=== PATIENT | female | born 1950 | race Caucasian/White ===

== ENCOUNTER 2022-07-03 05:54 | Observation (INO) | payer MEDICARE ==
[~2022-07-03] VITALS: Ht 157.5 cm; Wt 68.0 kg
[~2022-07-03 05:54] MED LIST: AMLODIPINE BESYL5 MG PO; COD LIVER OIL1 EAC1 PO; DIOVAN160 MG PO; ELDERBERRY PO; POTASSIUM CHLO10 ME1 PO
[2022-07-03] MEDS ORDERED: CELECOXIB 200 MG CAP ONE (06:49)
[2022-07-03] MEDS ORDERED: GABAPENTIN 300 MG CAP ONE (06:49)
[2022-07-03] MEDS ORDERED: DEXAMETHASONE SOD PHOS 10 MG/1 ML VIAL ONE (06:49)
[2022-07-03] MEDS ORDERED: SODIUM CHLORIDE 0.9% 500ML 500 ML ONE (06:52)
[2022-07-03] MEDS ORDERED: Vancomycin IV 1,000 MG ONE (06:52)
[2022-07-03] MEDS ORDERED: TRANEXAMIC ACID 20 ML ONE (06:53)
[2022-07-03] MEDS ORDERED: ROPIVACAINE 246.25 MG, EPINEPHRINE HCL 1:1000 1ML 0.5 MG, CLONIDINE HCL 0.08 MG, KETORO... INJ ONE ×5 (08:00)
[2022-07-03] MEDS ORDERED: ZOLPIDEM TARTRATE 5 MG TAB PO PRN (09:30)
[2022-07-03] MEDS ORDERED: DIPHENHYDRAMINE HCL INJ 50 MG/ML VIAL IV PRN (09:30)
[2022-07-03] MEDS ORDERED: HYDROCODONE/APAP 5MG-325MG TAB PO PRN (09:30)
[2022-07-03] MEDS ORDERED: HYDROCODONE/APAP 7.5MG-325MG 1 EA TAB PO PRN (09:30)
[2022-07-03] MEDS ORDERED: DOCUSATE SODIUM 100 MG CAP PO PRN (09:30)
[2022-07-03] MEDS ORDERED: ONDANSETRON HCL INJ 2MG/ML 2ML 2 MG/ML VIAL IV PRN (09:30)
[2022-07-03] MEDS ORDERED: METOPROLOL TARTRATE INJ 1 MG/ML VIAL ONE (10:13)
[2022-07-03 10:38] LABS: BASOPHILS % 0.4 % (0.0-1.0); HEMATOCRIT 41.5 % (34.2-44.1); HEMOGLOBIN 13.3 g/dL (12.0-16.0); LYMPHOCYTES # (AUTO) 2.2 (1.0-3.2); MEAN CORPUSCULAR HEMOGLOBIN 32.2 pg (28-32); MEAN CORPUSCULAR VOLUME 100.5 fL (81-99); MONOCYTES # (AUTO) 0.2 (0.2-0.8); MONOCYTES % 1.7 % (4.4-11.3); NEUTROPHILS # (AUTO) 8.5 (2.1-6.9); NEUTROPHILS % 77.4 % (38.7-80.0); PLATELET COUNT 222 x10e3/uL (140-360); RED BLOOD COUNT 4.13 x10e6/uL (3.6-5.1); RED CELL DISTRIBUTION WIDTH 12.3 % (11.7-14.4)
[2022-07-03 11:05] LABS: ANION GAP 16.7 mmol/L (8-16); CALCIUM 8.8 mg/dL (8.4-10.2); CREATININE, SERUM 0.77 mg/dL (0.57-1.11); POTASSIUM 3.7 mmol/L (3.5-5.1)
[2022-07-03] MEDS ORDERED: FENTANYL CITRATE/PF 100MCG/2 ML INJ ONE (13:37)
[2022-07-03 14:50] VITALS: BP 104/71
[2022-07-03 15:05] VITALS: BP 104/71
[2022-07-03 15:12] VITALS: BP 104/71
[2022-07-03] MEDS: SODIUM CHLORIDE 0.9% 1000ML 1,000 ML IV SCH (15:41)
[2022-07-03 16:08] VITALS: BP 104/71
[2022-07-03] MEDS: ASPIRIN 325 MG TAB PO SCH (16:35)
[2022-07-03] MEDS: CELECOXIB 100 MG CAP PO SCH (16:35)
[2022-07-03] MEDS ORDERED: ACETAMINOPHEN 1000 MG/100 ML IV PRN (18:00)
[2022-07-03 20:00] VITALS: BP 108/68
[2022-07-04] VITALS: BP 118/59
[2022-07-04 04:00] VITALS: BP 124/64
[2022-07-04 05:01] LABS: HEMATOCRIT 34.2 % (34.2-44.1); HEMOGLOBIN 11.2 g/dL (12.0-16.0)
[2022-07-04] MEDS: SODIUM CHLORIDE 0.9% 1000ML 1,000 ML IV SCH ×2 (06:29→06:31)
[2022-07-04 08:04] VITALS: BP 110/69
[2022-07-04] MEDS ORDERED: VALSARTAN 160 MG TAB PO SCH (09:00)
[2022-07-04] MEDS ORDERED: AMLODIPINE BESYLATE 5 MG TAB PO SCH (09:00)
[2022-07-04] MEDS ORDERED: POTASSIUM CHLORIDE 10MEQ EA PO SCH (09:00)
[2022-07-04 09:03] VITALS: BP 110/69
[2022-07-04] MEDS: ASPIRIN 325 MG TAB PO SCH (09:55)
[2022-07-04] MEDS: CELECOXIB 100 MG CAP PO SCH (09:56)
[2022-07-04] MEDS ORDERED: ONDANSETRON HCL 4 MG ORAL DISINTEGRATING TAB PO PRN (11:15)
[2022-07-04 13:53] VITALS: BP 119/83
== END 2022-07-04 14:30 | disposition home or self-care (01) ==
LOC: OR 05:54 → PACU V 09:43 → MED/SURG 14:45
PROVIDERS: ADMIT Specialist; ATTEND Specialist
DX: M17.0 Bilateral primary osteoarthritis of knee (principal); Z96.652 Presence of left artificial knee joint; E78.00 Pure hypercholesterolemia, unspecified; I10 Essential (primary) hypertension; I97.191 Other postprocedural cardiac functional disturbances following other surgery; Z20.822 Contact with and (suspected) exposure to COVID-19
CPT/HCPCS: 0223U; 27447; 36415 ×2; 73560; 80048; 85014; 85018; 85025; 86850; 86900; 86920; 93005; 94799 ×2; 97110 ×3; 97116 ×2; 97161; 97530 ×3; 99251; C1713; G0378 ×2; J0171; J0690 ×2; J1100; J1885; J2795; J3010; J3370; J7030; J7040

== ENCOUNTER 2023-08-13 05:23 | Observation (INO) | payer MEDICARE ==
[~2023-08-13] VITALS: Ht 157.5 cm; Wt 66.2 kg
[~2023-08-13 05:23] MED LIST changes: +ATORVASTATIN CA20 MG PO; +CALCIUM CHEW PO; +COQ-10100 MG PO; +ELDERBERRY350 MG PO; +FISH OIL 1,0001 EAC7 PO; +LEXAPRO5 MG PO; +VALSARTAN-HCTZ1 EAC1 PO; +VITAMIN B-121000 MCG PO
[2023-08-13] MEDS ORDERED: CELECOXIB 200 MG CAP ONE (05:40)
[2023-08-13] MEDS ORDERED: GABAPENTIN 300 MG CAP ONE (05:41)
[2023-08-13] MEDS ORDERED: DEXAMETHASONE SOD PHOS 10 MG/1 ML VIAL ONE (05:41)
[2023-08-13] MEDS ORDERED: CEFAZOLIN SODIUM 2 GM ONE (05:41)
[2023-08-13] MEDS ORDERED: LACTATED RINGER'S 1,000 ML ONE ×2 (05:41→08:38)
[2023-08-13] MEDS ORDERED: TRANEXAMIC ACID 20 ML ONE (06:32)
[2023-08-13] MEDS ORDERED: Vancomycin IV 1,000 MG ONE (06:32)
[2023-08-13] MEDS ORDERED: SODIUM CHLORIDE 0.9% 500ML 500 ML ONE (06:32)
[2023-08-13] MEDS ORDERED: ROPIVACAINE 246.25 MG, EPINEPHRINE HCL 1:1000 1ML 0.5 MG, CLONIDINE HCL 0.08 MG, KETORO... INJ ONE ×5 (08:00)
[2023-08-13] MEDS ORDERED: ONDANSETRON HCL INJ 2MG/ML 2ML 2 MG/ML VIAL IV PRN (08:15)
[2023-08-13] MEDS ORDERED: DIPHENHYDRAMINE HCL INJ 50 MG/ML VIAL IV PRN (08:15)
[2023-08-13] MEDS ORDERED: HYDROCODONE/APAP 7.5MG-325MG 1 EA TAB PO PRN (08:15)
[2023-08-13] MEDS ORDERED: HYDROCODONE/APAP 5MG-325MG TAB PO PRN (08:15)
[2023-08-13] MEDS ORDERED: DOCUSATE SODIUM 100 MG CAP PO PRN (08:15)
[2023-08-13] MEDS ORDERED: METOPROLOL TARTRATE INJ 1 MG/ML VIAL ONE (08:29)
[2023-08-13] MEDS ORDERED: SEVOFLURANE INHAL SOLN 250 ML PEN BTL ONE (13:14)
[2023-08-13] MEDS ORDERED: ONDANSETRON HCL INJ 2MG/ML 2ML 2 MG/ML VIAL ONE (13:14)
[2023-08-13] MEDS ORDERED: DEXAMETHASONE SOD PHOS INJ 4 MG/ML SDV ONE (13:14)
[2023-08-13] MEDS ORDERED: PROPOFOL IV EMULSION 10 MG/ML 20 ML VIAL ONE (13:14)
[2023-08-13] MEDS ORDERED: LIDOCAINE HCL 2% LOCAL INJ 5 ML SDV VIAL INJ ONE (13:14)
[2023-08-13] MEDS ORDERED: LIDOCAINE HCL 2% LOCAL 20 ML VIAL ONE (13:49)
[2023-08-13] MEDS ORDERED: EPINEPHRINE HCL 1:1000 1ML 1 MG/ML AMP ONE (13:49)
[2023-08-13] MEDS ORDERED: ROPIVACAINE 0.5% 5 MG/ML 30 ML SDV ONE (13:49)
[2023-08-13] MEDS: SODIUM CHLORIDE 0.9% 1000ML 1,000 ML IV SCH ×2 (16:00→23:07)
[2023-08-13 16:17] VITALS: BP 108/64; PULSE 65; RESP 19; TEMP 97.4; O2SAT 98
[2023-08-13 16:18] VITALS: BP 108/64; PULSE 65; RESP 19; TEMP 97.4; O2SAT 98
[2023-08-13] MEDS: CELECOXIB 100 MG CAP PO SCH (16:43)
[2023-08-13 17:18] VITALS: PULSE 60; RESP 18; O2SAT 93
[2023-08-13 19:31] VITALS: BP 106/68; PULSE 56; RESP 18; TEMP 97.6; O2SAT 96
[2023-08-13 20:00] VITALS: BP 106/68; PULSE 56; RESP 18; TEMP 97.6; O2SAT 96
[2023-08-13] MEDS: ASPIRIN 325 MG TAB PO SCH (23:06)
[2023-08-13 23:25] VITALS: BP 109/69; PULSE 50; RESP 18; TEMP 97.5; O2SAT 94
[2023-08-14 06:11] LABS: HEMATOCRIT 38.7 % (34.2-44.1); HEMOGLOBIN 12.8 g/dL (12.0-16.0)
[2023-08-14 07:32] VITALS: PULSE 64; RESP 18; O2SAT 98
[2023-08-14] MEDS ORDERED: ACETAMINOPHEN 1000 MG/100 ML IV PRN (08:15)
[2023-08-14 08:19] VITALS: BP 128/74; PULSE 64; RESP 18; TEMP 97.4; O2SAT 98
[2023-08-14] MEDS: CELECOXIB 100 MG CAP PO SCH (08:36)
[2023-08-14] MEDS: ASPIRIN 325 MG TAB PO SCH (08:36)
[2023-08-14 09:34] VITALS: BP 128/74; PULSE 64; RESP 18; TEMP 97.4; O2SAT 98
[2023-08-14] MEDS ORDERED: ONDANSETRON HCL 4 MG ORAL DISINTEGRATING TAB PO PRN (11:00)
[2023-08-14 12:07] VITALS: BP 107/79; PULSE 72; RESP 18; TEMP 97.3; O2SAT 100
[2023-08-14] MEDS ORDERED: ASPIRIN81 MG PO (13:32)
== END 2023-08-14 14:29 | disposition home health service (06) ==
LOC: OR 05:23 → PACU V 08:02 → MED/SURG 16:00
PROVIDERS: ADMIT Specialist; ATTEND Specialist
DX: M17.12 Unilateral primary osteoarthritis, left knee (principal); Z96.651 Presence of right artificial knee joint; I10 Essential (primary) hypertension; E78.00 Pure hypercholesterolemia, unspecified; I48.91 Unspecified atrial fibrillation; R00.0 Tachycardia, unspecified; F41.9 Anxiety disorder, unspecified; F32.A Depression, unspecified; G20.A1 Parkinson's disease without dyskinesia, without mention of fluctuations; Z79.899 Other long term (current) drug therapy; Z79.82 Long term (current) use of aspirin; Z01.818 Encounter for other preprocedural examination; Z88.5 Allergy status to narcotic agent
CPT/HCPCS: 27447; 36415; 71046; 73560; 85014; 85018; 86850; 86900; 93005; 94799 ×2; 97110; 97116 ×3; 97161; 97530 ×3; C1713 ×2; C1776 ×3; G0378 ×2; J0171; J0690 ×2; J1100 ×2; J1885; J2001 ×2; J2405; J2704; J2795; J3370; J7030; J7040; J7121